=== PATIENT | female | born 1960 | race Caucasian/White ===

== ENCOUNTER → 2018-03-06 | Outpatient (CLI) | payer BC ==
[~2018-03-06] MED LIST: CATHETER FLUSH 10 ML SYR IV PRN; REGADENOSON 0.4 MG/5 ML SYR (LEXISCAN) IV ONE
[2018-03-06 09:04] VITALS: BP 181/108
[2018-03-06 09:10] VITALS: BP 152/92
[2018-03-06 09:11] VITALS: BP 177/94
--- NOTE | 2018-03-06 11:50 | Cardiology Stress Test Report ---
Stress Test Report Type of NM Stress Test: Test Type: LEXISCAN 0.4MG/5ML Date of Procedure/Referring: Date of Procedure: Mar 06, 2018 PCP Raphael Grey MD Admitting Physician [facility] Indications: Chest pain Baseline Heart Rate: 75 Baseline Blood Pressure: Blood Pressure Systolic: 177 Blood Pressure Diastolic: 94 Baseline EKG: Baseline EKG: sinus rhythm Summary & Conclusion: Summary: The patient was brought to the stress lab after informed consent was taken. Stress test was performed according to the Lexiscan protocol. 0.4 mg of IV Lexiscan was given. Low-grade exercise was performed. Baseline EKG showed sinus rhythm at 75 BPM. Initial blood pressure was 181/108 mmHg. Maximum heart rate was 91 bpm and blood pressure 177/94 mmHg. Patient did not have any chest pain, arrhythmias or ST segment changes during the stress test. 10.64 mCi of Myoview were given for rest imaging and 27.7 mCi of Myoview given for stress imaging. Transient ischemic dilatation score 0.91, EF 54 percent. Inferior/lateral hypokinesis. Intermediate severity large area of inferior lateral fixed defect with kiran-infarct mild ischemia. Conclusion: Pharmacological stress test was negative for ischemia. Normal LV function with inferior lateral hypokinesis. 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 I will get this report faxed to Dr Grey's office. Marvin ALDANA MD Mar 06, 2018 11:50 am
== END ==
LOC: CARD 07:04
PROVIDERS: ATTEND Internal Medicine Cardiovascular Disease
DX: I25.119 Atherosclerotic heart disease of native coronary artery with unspecified angina pectoris (principal); I25.2 Old myocardial infarction; R06.09 Other forms of dyspnea; R07.9 Chest pain, unspecified
CPT/HCPCS: 78452; 93017

== ENCOUNTER 2018-08-17 09:37 | Emergency (ER) | payer BC ==
[~2018-08-17] VITALS: Ht 165.1 cm; Wt 108.9 kg
[2018-08-17 09:56] LABS: BILIRUBIN,URINE NEGATIVE (NEGATIVE); CLARITY,URINE CLEAR; COLOR,URINE YELLOW; GLUCOSE, URINE (UA) NEGATIVE (NEGATIVE); KETONES,URINE NEGATIVE (NEGATIVE); LEUKOCYTE ESTERASE ,URINE NEGATIVE (NEGATIVE); NITRITE,URINE NEGATIVE (NEGATIVE); PH,URINE 6 (5-9); PROTEIN,URINE NEGATIVE (NEGATIVE); UROBILINOGEN,URINE NORMAL (NORMAL)
[2018-08-17 10:02] LABS: BACTERIA,URINE FEW /HPF; SQUAMOUS EPITHELIAL CELL,UR 0-2 /HPF; WBC,URINE RARE /HPF
[2018-08-17] MEDS ORDERED: KETOROLAC 60 MG/2 ML VIAL IM STA (10:28)
[2018-08-17] MEDS ORDERED: HYDROcodone/APAP 7.5 MG/325 MG (LORTAB, LORCET PLUS) TABLET PO STA (10:28)
[2018-08-17] MEDS ORDERED: predniSONE 20 MG TAB PO ONE (10:30)
--- NOTE | 2018-08-17 10:47 | ED Back Pain ---
General Chief Complaint: Back Problems Stated Complaint: BACK PAIN Nursing Triage Note: ARRIVED VIA AMB TO TRIAGE WITH COMPLAINTS OF LOWER BACK PAIN SINCE SATURDAY AND URINE RETENTION. HX OF CHRONIC BACK PAIN. LAST DOSE OF IBUPROFEN WAS YESTERDAY. Nursing Sepsis Screen: No Definite Risk Source of Information: Patient Exam Limitations: No Limitations History of Present Illness Date Seen by Provider: Aug 17, 2018 Time Seen by Provider: 10:19 Initial Comments Here with report of low back pain that is chronic but worse over the last few days. Thought she might have a urinary tract infection. States the pain is on the right side and radiates to the left. It does not radiate into the buttocks. Does have history of L5 dysfunction. Denies numbness between her legs. Does have pain with walking but no weakness. She has tried Tylenol and ibuprofen but has not had any today. Denies fevers. Location: Paraspinous Muscles Timing/Duration: 3-4 Days Severity: Moderate Pain/Injury Location: Back Radiation: Other (none) Method of Injury: Unknown Modifying Factors: Worse With Movement; Improves With Rest Associated Symptoms: muscle spasms; No fever, No weakness, No numbness in legs/feet, No tingling in legs/feet, No sensory/motor loss; lower back pain; No loss of bladder control, No loss of bowel control Allergies and Home Medications Allergies Coded Allergies: Sulfa (Sulfonamide Antibiotics) (Verified Allergy, Severe, HIVES, 08/17/18) Patient Home Medication List Home Medication List Reviewed: Yes Review of Systems Constitutional: see HPI; No chills, No fever Respiratory: no symptoms reported Cardiovascular: no symptoms reported Gastrointestinal: no symptoms reported Genitourinary: see HPI Musculoskeletal: see HPI, back pain, muscle pain, muscle stiffness Skin: no symptoms reported Past Wnxbnbr-Ukwskk-Kekglc Hx Past Med/Social Hx: Reviewed Nursing Past Med/Soc Hx Patient Social History Alcohol Use: Denies Use Recreational Drug Use: No Smoking Status: Former Smoker Recent Foreign Travel: No Contact w/Someone Who Travel: No Recent Infectious Disease Expo: No Recent Hopitalizations: No Past Medical History Surgeries: Yes Appendectomy, Gallbladder, Hysterectomy Respiratory: Yes COPD Cardiac: Yes Heart Attack, Hypertension Neurological: No Genitourinary: Yes UTI-Chronic Gastrointestinal: Yes Hemorrhoids Musculoskeletal: Yes Chronic Back Pain Endocrine: No Cancer: No Anxiety, Depression Family Medical History Reviewed Nursing Family Hx No Pertinent Family Hx Physical Exam Vital Signs Vital Signs - First Documented 08/17/18 09:40 Temp 98.1 Pulse 107 Resp 16 B/P (MAP) 130/57 (81) Pulse Ox 97 Capillary Refill : Less Than 3 Seconds Height, Weight, BMI Height: 5'5.00" Weight: 240lbs. oz. 108.957445hn; BMI Method:Stated General Appearance: WD/WN, Mild Distress, Obese Cardiovascular: Regular Rate, Rhythm, No Murmur Respiratory: Lungs Clear, Normal Breath Sounds Back: No CVA Tenderness, Muscle Spasm, Other (tenderness in the right lumbosacral junction and radiates across.) Neurologic/Psychiatric: Alert, Oriented x3; No Motor Weakness Skin: Normal Color, Warm/Dry Progress/Results/Core Measures Results/Orders Lab Results Laboratory Tests Test 08/17/18 09:50 Range/Units Urine Color YELLOW Urine Clarity CLEAR Urine pH 6 5-9 Urine Specific Webber 1.005 L 1.016-1.022 Urine Protein NEGATIVE NEGATIVE Urine Glucose (UA) NEGATIVE NEGATIVE Urine Ketones NEGATIVE NEGATIVE Urine Nitrite NEGATIVE NEGATIVE Urine Bilirubin NEGATIVE NEGATIVE Urine Urobilinogen NORMAL NORMAL MG/DL Urine Leukocyte Esterase NEGATIVE NEGATIVE Urine RBC (Auto) NEGATIVE NEGATIVE Urine RBC 2-5 H /HPF Urine WBC RARE /HPF Urine Squamous Epithelial Cells 0-2 /HPF Urine Crystals NONE /LPF Urine Bacteria FEW H /HPF Urine Casts NONE /LPF Urine Mucus NEGATIVE /LPF Urine Culture Indicated NO My Orders Orders - TL THIBODEAUX MD Ua Culture If Indicated (08/17/18 09:52) Hydrocodone/Apap 7.5/325 Tab (Lortab 7. (08/17/18 10:28) Ketorolac Injection (Toradol Injection) (08/17/18 10:28) Prednisone Tablet (Deltasone Tablet) (08/17/18 10:30) Medications Given in ED Current Medications Medications Dose Ordered Sig/Juan Alberto Route Start Time Stop Time Status Last Admin Dose Admin Prednisone 60 mg ONCE ONCE PO 08/17/18 10:30 08/17/18 10:31 DC 08/17/18 10:35 60 MG Vital Signs/I&O 08/17/18 09:40 Temp 98.1 Pulse 107 Resp 16 B/P (MAP) 130/57 (81) Pulse Ox 97 Blood Pressure Mean: 81 Progress Progress Note : Progress Note Seen and evaluated. Toradol 60 mg IM, prednisone 60 mg by mouth and hydrocodone 7.5/325 one tab by mouth given. Discharged home with return precautions. Patient verbalize understanding instructions and agreement with plan. Departure Impression Primary Impression: Low back pain Qualified Codes: M54.5 - Low back pain Disposition: HOME, SELF-CARE Condition: Stable Departure-Patient Inst. Decision time for Depature: 10:47 Referrals: [facility] (PCP) Primary Care Physician ZAKIA RODRIGUEZ APRN (Family) Primary Care Physician Patient Instructions: Low Back Pain (DC) Add. Discharge Instructions: All discharge instructions reviewed with patient and/or family. Voiced understanding. You may take ibuprofen 800 mg every 8 hours as needed for pain. Take pain medication as prescribed with the hydrocodone-containing compound. If you're not taking the hydrocodone pain medicine then you may take Tylenol/acetaminophen 1000 mg every 8 hours as needed for pain but do not take with the prescribed pain medicine as they both have acetaminophen in then.You may use [id number] Icy Hot with lidocaine patches, Aspercreme with lidocaine patches, Salonpas with lidocaine patches for similar items to area of concern per package directions. Return for worse pain, fever, vomiting, weakness, breathing problems, numbness between your legs, difficulty walking, problems with going to the bathroom or other concerns as needed. Scripts Prednisone (Prednisone) 20 Mg Tab 40 MG PO DAILY, #10 TAB 0 Refills Prov: TL THIBODEAUX MD 08/17/18 Hydrocodone Bit/Acetaminophen (Hydrocodone/Acetaminophen 5/325mg Tablet) 1 Tab Tab 1 EACH PO Q4-6HR PRN for PAIN-MODERATE MDD 10 for 3 Days, #12 TAB 0 Refills Prov: TL THIBODEAUX MD 08/17/18 TL THIBODEAUX MD Aug 17, 2018 10:47
[2018-08-17] MEDS ORDERED: PRD20T PO (10:50)
[2018-08-17] MEDS ORDERED: ACHD5005 PO (10:50)
[2018-08-17 10:55] VITALS: BP 130/57
== END 2018-08-17 10:55 | disposition home or self-care (01) ==
LOC: EDUNIT# 09:37 → ER 09:38
DX: M54.5 Low back pain (principal); J44.9 Chronic obstructive pulmonary disease, unspecified; I25.2 Old myocardial infarction; I10 Essential (primary) hypertension; F32.9 Major depressive disorder, single episode, unspecified; F41.9 Anxiety disorder, unspecified; Z87.19 Personal history of other diseases of the digestive system; Z87.440 Personal history of urinary (tract) infections; Z88.2 Allergy status to sulfonamides; Z87.891 Personal history of nicotine dependence; Z90.710 Acquired absence of both cervix and uterus; Z90.49 Acquired absence of other specified parts of digestive tract
CPT/HCPCS: 81000; 96372; 99284

== ENCOUNTER → 2019-01-12 | Outpatient (CLI) | payer BC ==
[~2019-01-12] MED LIST changes: +ACHD5005 PO; -CATHETER FLUSH 10 ML SYR IV PRN; +PRD20T PO; -REGADENOSON 0.4 MG/5 ML SYR (LEXISCAN) IV ONE
--- NOTE | 2019-01-14 15:51 | Diagnostic Imaging Report ---
INDICATION: Routine screening. COMPARISON: The patient's prior mammograms are not available for comparison. TECHNIQUE: 2D and 3D bilateral screening mammography was performed with CAD. FINDINGS: Scattered fibroglandular densities are identified bilaterally. There is a nodular density in the upper slightly outer left breast at anterior to mid depth. Additional views are recommended. The right breast is unremarkable. No suspicious calcifications are seen. The axillae are unremarkable. IMPRESSION: Left breast density. Additional views are recommended for further evaluation. ACR BI-RADS Category 0: Incomplete. (Needs additional imaging evaluation). Result letter will be mailed to the patient. Note: At least 10% of breast cancer is not imaged by mammography. Dictated by: Dictated on workstation # [id number]
== END ==
LOC: RAD 09:16
PROVIDERS: ATTEND Nurse Practitioner Family
DX: Z12.31 Encounter for screening mammogram for malignant neoplasm of breast (principal)
CPT/HCPCS: 77067

== ENCOUNTER → 2019-01-12 | Outpatient (CLI) | payer BC | LOC: CARD 09:13 | PROVIDERS: ATTEND Nurse Practitioner Acute Care | DX: I10 Essential (primary) hypertension (principal); R07.9 Chest pain, unspecified; R06.02 Shortness of breath | CPT/HCPCS: 93306 ==

== ENCOUNTER → 2019-01-26 | Outpatient (CLI) | payer BC ==
--- NOTE | 2019-01-26 14:33 | Diagnostic Imaging Report ---
INDICATION: Left breast density. Patient presented for additional views. Correlation is made with the recent screening study from 01/12/2019. Unilateral left 2-D and 3-D diagnostic mammography was performed. This included a spot compression CC and ML view as well as conventional 90 degree lateral view. There is a persistent slightly nodular density in the upper and outer aspect of the left breast 4 to 5 cm from the nipple. No microcalcifications are seen. No other abnormality is detected. IMPRESSION: BI-RADS 0 Persistent small area of nodularity upper outer left breast 4 to 5 cm from the nipple. Further evaluation of this area with ultrasound is recommended and will be performed today. ACR BI-RADS Category 0: Incomplete. (Needs additional imaging evaluation). Result letter will be mailed to the patient. Note: At least 10% of breast cancer is not imaged by mammography. Dictated by: Dictated on workstation # [id number]
--- NOTE | 2019-01-26 14:36 | Diagnostic Imaging Report ---
INDICATION: Left breast nodular density. Study is performed for further evaluation. Correlation is made with diagnostic mammogram earlier today as well as the screening mammogram from 01/04/2019. Sonography interrogation of the upper and outer left breast was performed. There is a tiny cluster of cysts at the 12:00 location, 3 cm from the nipple. In aggregate this cluster measures 8 mm x 6 mm x 5 mm. This likely accounts for the density noted mammographically. No solid mass is detected. IMPRESSION: BI-RADS Category 2 Benign appearing cluster of cysts 12:00 location left breast, 3 cm from the nipple. This likely accounts for the mammographic density. Patient may return to routine annual screening mammography. ACR BI-RADS Category 2: Benign findings. Dictated by: Dictated on workstation # [id number]
== END ==
LOC: RAD 12:16
PROVIDERS: ATTEND Nurse Practitioner Family
DX: N60.02 Solitary cyst of left breast (principal); R92.8 Other abnormal and inconclusive findings on diagnostic imaging of breast
CPT/HCPCS: 76642